=== PATIENT | male | born 1940 | race Caucasian/White ===

== ENCOUNTER 2021-03-18 07:43 | Inpatient (IN) ==
[2021-03-18] MEDS ORDERED: GLUCAGON 1 MG VIAL IM PRN (08:04)
[2021-03-18] MEDS ORDERED: CLORAZEPATE 3.75 MG TABLET PO PRN (08:08)
[2021-03-18] MEDS ORDERED: NITROGLYCERIN SL 0.4 MG TABLET SL PRN (08:08)
[2021-03-18] MEDS ORDERED: MORPHINE 2 MG/1 ML SYRINGE IV PRN (08:08)
[2021-03-18] MEDS ORDERED: INFLUENZA VIRUS VACCINE 0.5 ML SYRINGE IM ONE (15:24)
[2021-03-18 15:29] LABS: Basophils % 0.4 % (0.0-0.8); Eosinophils # 0.1 10*3/uL (0.0-0.87); Eosinophils % 0.9 % (0.00-10.9); Hematocrit 37.4 VOL% (42.0-52.0); Hemoglobin 12.7 GM/DL (14.0-18.0); Immature Granulocytes % 0.4 %; Immature Granulocytes Absolute 0.03 #; Lymphocytes # 1.9 10*3/uL (1.4-4.0); Lymphocytes % 22.2 % (21.2-54.2); Mean Corpuscular Volume 94.4 FL (87-102); Mean Platelet Volume 8.7 FL (9.6-12.0); Monocytes % 7.5 % (1.7-12.7); Neutrophils % 68.6 % (38.7-73.9); Platelet Count 362 T/CUMM (130-400); Red Blood Count 3.96 MC/CUMM (3.8-5.5); Red Cell Distribution Width 13.1 % (9.3-17.3); White Blood Count 8.5 T/CUMM (4-12)
[2021-03-18] MEDS ORDERED: DEXTROSE 50% 25 GM/50 ML SYRINGE IV PRN (15:29)
[2021-03-18 15:49] LABS: Alanine Aminotransferase 26 U/L (16-61); Albumin 3.4 G/DL (3.4-5.0); Alkaline Phosphatase 65 U/L (45-117); Aspartate Amino Transferase 15 U/L (0-37); Bilirubin,Total < 0.39 MG/DL (0.20-1.00); Blood Urea Nitrogen 16 MG/DL (7-18); Calcium 9.4 MG/DL (8.5-10.1); Carbon Dioxide 27 MMOL/L (21-32); Estimated Glom Filtration Rate 68 ML/MIN; Glucose 99 MG/DL (74-106); Osmolality,Calculated 283.1 MOS/KG (273-304); Potassium 3.8 MMOL/L (3.5-5.1); Sodium 142 MMOL/L (136-145)
[2021-03-18 16:24] LABS: ABG Base Excess 1.2 MMOL/L (-2.5-2.5); ABG HCO3 25.5 MMOL/L (20-26); ABG Oxygen Saturation 98.6 % (95-100); ABG PCO2 34.7 MM HG (35-48); ABG PH 7.458 (7.35-7.45); ABG TCO2 21.6 MMOL/L (23-27); Pt O2 Delivery Device Room Air
[2021-03-18] MEDS: CHLORHEXIDINE 4% SOLN 118 ML BOTTLE TOP SCH ×2 (16:59→22:45)
[2021-03-18] MEDS: CHLORHEXIDINE 0.12% ORAL RINSE 60 ML BOTTLE SWISH/SPIT SCH (22:46)
[2021-03-19] MEDS ORDERED: PAPAVERINE 60 MG/2 ML VIAL ONE (04:19)
[2021-03-19] MEDS ORDERED: VANCOMYCIN 1,000 MG VIAL ONE (04:20)
[2021-03-19] MEDS ORDERED: VANCOMYCIN 500 MG VIAL ONE (04:20)
[2021-03-19] MEDS: CHLORHEXIDINE 4% SOLN 118 ML BOTTLE TOP SCH (04:30)
[2021-03-19] MEDS ORDERED: CEFUROXIME INJ 1,500 MG in SODIUM CHLORIDE 0.9% 100 ML IV ONE (05:00)
[2021-03-19] MEDS ORDERED: ePHEDrine 50 MG/ML VIAL ONE ×2 (05:02→07:03)
[2021-03-19] MEDS ORDERED: VECURONIUM 10 MG VIAL IV ONE (05:02)
[2021-03-19] MEDS ORDERED: ETOMIDATE 40 MG/20 ML VIAL IV ONE (05:02)
[2021-03-19] MEDS ORDERED: CALCIUM CHLORIDE 1,000 MG/10 ML VIAL IV ONE ×2 (05:02→10:24)
[2021-03-19] MEDS ORDERED: NITROGLYCERIN DRIP 50 MG/250 ML BOTTLE IV ONE (05:02)
[2021-03-19] MEDS ORDERED: AMINOCAPROIC ACID 5,000 MG/20 ML VIAL ONE (05:02)
[2021-03-19] MEDS ORDERED: SODIUM CHLORIDE 0.9% 1,000 ML IV ONE (05:02)
[2021-03-19] MEDS ORDERED: SODIUM CHLORIDE 0.9% 250 ML IV ONE (05:02)
[2021-03-19] MEDS ORDERED: SEVOFLURANE 1 UNIT/15 MINUTE INH ONE ×3 (05:02→11:25)
[2021-03-19] MEDS ORDERED: LACTATED RINGERS 1,000 ML IV ONE (05:02)
[2021-03-19] MEDS ORDERED: MIDAZOLAM 10 MG/2 ML VIAL ONE ×4 (05:03)
[2021-03-19] MEDS ORDERED: SUFentanil 250 MCG/5 ML AMP ONE ×2 (05:03→05:04)
[2021-03-19] MEDS ORDERED: PHENYLEPHRINE 10 MG/1 ML VIAL IV ONE (05:03)
[2021-03-19] MEDS ORDERED: DIAZEPAM 5 MG TABLET PO ONE (05:30)
[2021-03-19] MEDS ORDERED: FAMOTIDINE 20 MG TABLET PO ONE (05:30)
[2021-03-19] MEDS: CHLORHEXIDINE 0.12% ORAL RINSE 60 ML BOTTLE SWISH/SPIT SCH ×3 (05:43→20:30)
[2021-03-19] MEDS ORDERED: LIDOCAINE 2% 5 ML VIAL ONE ×2 (05:49→10:57)
[2021-03-19] MEDS ORDERED: MINERAL OIL/PETROLATUM OPH OINT 3.5 GM TUBE ONE (07:03)
[2021-03-19] MEDS ORDERED: POTASSIUM CHLORIDE RIDER 20 MEQ/100 ML PREMIX IV ONE (07:09)
[2021-03-19] MEDS ORDERED: CALCIUM CHLORIDE 1,000 MG/10 ML SYRINGE IV ONE (07:09)
[2021-03-19] MEDS ORDERED: PHENYLEPHRINE DRIP 40 MG/250 ML PREMIX IV ONE (07:09)
[2021-03-19] MEDS ORDERED: NITROPRUSSIDE 50 MG/2 ML VIAL ONE (07:09)
[2021-03-19] MEDS ORDERED: SODIUM BICARBONATE 50 MEQ/50 ML VIAL IV ONE ×2 (07:09→10:58)
[2021-03-19 07:51] LABS: Bacteria,Urine Occasional /HPF (Few); Bilirubin,Urine Negative (Negative); Blood, Urine Small mg/dL (Negative); Glucose,Urine (UA) Negative (Negative); Ketones,Urine Negative (Negative); Nitrite,Urine Negative (Negative); Protein,Urine Negative; RBC,Urine 8 /HPF (0-4); Urine Appearance CLEAR (Clear); Urine Color Straw (Yellow); Urine Specific Gravity 1.006 (1.001-1.035); Urine Urobilinogen < 2.0 EU/DL (0.2-1.0)
[2021-03-19] MEDS ORDERED: HEPARIN/NACL 0.9% 2 UNITS/ML 1,000 UNIT/500 ML BAG IV ONE (08:45)
[2021-03-19 09:05] LABS: PCO2 Patient Temp Arterial 39.4 MMHG; PH Patient Temp Arterial 7.414; Patient Temperature 37 CELCIUS
[2021-03-19 09:09] LABS: Hematocrit Heart Surgery 23.2 PERCENT (42-52); Hemoglobin Heart Surgery 7.4 G/DL (14.0-18.0); PCO2 Patient Temp Venous 34.1 MM HG; PH Patient Temp Venous 7.458; PO2 Patient Temp Venous 35.7 MM HG; Potassium Heart/CVR 4.2 MMOL/L (3.5-5.1); VBG Base Excess 0.7 MEQ/L (0-4); VBG HCO3 24.8 MEQ/L (24-28); VBG Oxygen Saturation 80.6 %; VBG PCO2 39.4 MMHG (41-51); VBG PH 7.414; VBG Total CO2 23.7 MMOL/L
[2021-03-19 09:10] LABS: ABG Base Excess 0.7 MMOL/L (-2.5-2.5); ABG HCO3 24.8 MMOL/L (20-26); ABG Oxygen Saturation 80.6 % (95-100); ABG PCO2 39.4 MM HG (35-48); ABG PH 7.414 (7.35-7.45); ABG TCO2 23.7 MMOL/L (23-27); Glucose Heart Surgery 329 MG/DL (74-106); Hematocrit Heart Surgery 23.2 PERCENT (42-52); Hemoglobin Heart Surgery 7.4 G/DL (14.0-18.0); Ionized Calcium Arterial 1.01 MMOL/L (1.21-1.46); Potassium Heart/CVR 4.2 MMOL/L (3.5-5.1); Sodium Heart/CVR 131 MMOL/L (135-145)
[2021-03-19 09:37] LABS: Hematocrit Heart Surgery 25.5 PERCENT (42-52); Hemoglobin Heart Surgery 8.2 G/DL (14.0-18.0); PCO2 Patient Temp Venous 36.7 MM HG; PH Patient Temp Venous 7.434; PO2 Patient Temp Venous 45.1 MM HG; Potassium Heart/CVR 4.2 MMOL/L (3.5-5.1); VBG Base Excess 0.5 MEQ/L (0-4); VBG HCO3 24.7 MEQ/L (24-28); VBG Oxygen Saturation 82.4 %; VBG PCO2 36.7 MMHG (41-51); VBG PH 7.434; VBG PO2 45.1 MMHG (17-40); VBG Total CO2 22.9 MMOL/L
[2021-03-19 10:08] LABS: Hematocrit Heart Surgery 27.1 PERCENT (42-52); Hemoglobin Heart Surgery 8.7 G/DL (14.0-18.0); PCO2 Patient Temp Venous 35.6 MM HG; PH Patient Temp Venous 7.443; PO2 Patient Temp Venous 36.5 MM HG; Potassium Heart/CVR 4.3 MMOL/L (3.5-5.1); VBG Base Excess 0.5 MEQ/L (0-4); VBG HCO3 24.5 MEQ/L (24-28); VBG Oxygen Saturation 71.7 %; VBG PCO2 35.6 MMHG (41-51); VBG PH 7.443; VBG PO2 36.5 MMHG (17-40); VBG Total CO2 22.6 MMOL/L
[2021-03-19] MEDS ORDERED: THROMBIN TOPICAL (RECOMBINANT) 5,000 UNIT VIAL TOP ONE (10:23)
[2021-03-19 10:51] LABS: ABG Base Excess -2.4 MMOL/L (-2.5-2.5); ABG HCO3 22.4 MMOL/L (20-26); ABG Oxygen Saturation 99.4 % (95-100); ABG PCO2 41.2 MM HG (35-48); ABG PH 7.354 (7.35-7.45); ABG TCO2 21.1 MMOL/L (23-27); Glucose Heart Surgery 208 MG/DL (74-106); Hematocrit Heart Surgery 29.4 PERCENT (42-52); Hemoglobin Heart Surgery 9.5 G/DL (14.0-18.0); Ionized Calcium Arterial 1.29 MMOL/L (1.21-1.46); PCO2 Patient Temp Arterial 41.2 MMHG; PH Patient Temp Arterial 7.354; Patient Temperature 37 CELCIUS; Potassium Heart/CVR 3.6 MMOL/L (3.5-5.1); Sodium Heart/CVR 137 MMOL/L (135-145)
[2021-03-19] MEDS ORDERED: ALBUMIN 25% 25 GM/100 ML VIAL IV ONE (10:56)
[2021-03-19] MEDS ORDERED: HEPARIN 10,000 UNIT/10 ML VIAL ONE (10:57)
[2021-03-19] MEDS ORDERED: MAGNESIUM SULFATE 5 GM/10 ML VIAL IV ONE (10:57)
[2021-03-19] MEDS ORDERED: MANNITOL 100 GM/500 ML BAG IV ONE (10:57)
[2021-03-19] MEDS ORDERED: PROTAMINE SULFATE 250 MG/25 ML VIAL IV ONE (10:57)
[2021-03-19] MEDS ORDERED: DEXTROSE 5% KCL 20 MEQ 20 MEQ/1,000 ML BAG IV ONE (10:57)
[2021-03-19] MEDS ORDERED: methylPREDNISolone SOD SUC 1,000 MG/8 ML VIAL ONE (10:57)
[2021-03-19] MEDS ORDERED: PROTAMINE SULFATE 50 MG/5 ML VIAL IV ONE ×2 (10:58→11:21)
[2021-03-19] MEDS ORDERED: FUROSEMIDE 20 MG/2 ML VIAL ONE (10:58)
[2021-03-19] MEDS ORDERED: SODIUM CHLORIDE 0.45% 1,000 ML IV SCH ×2 (11:03)
[2021-03-19] MEDS ORDERED: ACETAMINOPHEN 650 MG SUPP RECTAL PRN (11:03)
[2021-03-19] MEDS ORDERED: INSULIN REGULAR DRIP 100 ML IV SCH (11:03)
[2021-03-19] MEDS ORDERED: NITROPRUSSIDE 100 MG in DEXTROSE 5% 250 ML IV PRN (11:03)
[2021-03-19] MEDS ORDERED: INSULIN REGULAR 100 UNIT/ML IV PRN (11:03)
[2021-03-19] MEDS ORDERED: CALCIUM CHLORIDE 1,000 MG/10 ML SYRINGE IV PRN (11:03)
[2021-03-19] MEDS ORDERED: MIDAZOLAM 10 MG/2 ML VIAL IV PRN (11:03)
[2021-03-19] MEDS ORDERED: VECURONIUM 10 MG VIAL IV PRN ×2 (11:03)
[2021-03-19] MEDS ORDERED: CHLORHEXIDINE 4% SOLN 118 ML BOTTLE TOP PRN (11:03)
[2021-03-19] MEDS ORDERED: ONDANSETRON 4 MG/2 ML VIAL IV PRN (11:03)
[2021-03-19] MEDS ORDERED: INSULIN REGULAR 100 UNIT/ML IV ONE (11:03)
[2021-03-19] MEDS ORDERED: MAGNESIUM SULF RIDER 4 GM/100 ML PREMIX IV PRN (11:03)
[2021-03-19] MEDS ORDERED: PHENYLEPHRINE DRIP 40 MG/250 ML PREMIX IV PRN (11:03)
[2021-03-19] MEDS ORDERED: MORPHINE 10 MG/1 ML VIAL IV PRN (11:03)
[2021-03-19] MEDS ORDERED: MIDAZOLAM 2 MG/2 ML VIAL IV PRN (11:03)
[2021-03-19] MEDS ORDERED: MAGNESIUM SULF RIDER 2 GM/50 ML PREMIX IV PRN (11:03)
[2021-03-19] MEDS ORDERED: DEXTROSE 50% 25 GM/50 ML SYRINGE IV PRN ×2 (11:54)
[2021-03-19] MEDS: ALBUMIN 5% 12.5 GM/250 ML VIAL IV PRN ×2 (12:17→13:41)
[2021-03-19 12:26] LABS: ABG Base Excess -2.8 MMOL/L (-2.5-2.5); ABG HCO3 22.1 MMOL/L (20-26); ABG Oxygen Saturation 98.6 % (95-100); ABG PCO2 32.7 MM HG (35-48); ABG PH 7.417 (7.35-7.45); ABG TCO2 19.2 MMOL/L (23-27); Glucose Heart Surgery 195 MG/DL (74-106); Hematocrit Heart Surgery 30.4 PERCENT (42-52); Hemoglobin Heart Surgery 9.8 G/DL (14.0-18.0); Potassium Heart/CVR 3.3 MMOL/L (3.5-5.1)
[2021-03-19 12:28] LABS: Basophils % 0.1 % (0.0-0.8); Eosinophils % 0.1 % (0.00-10.9); Hematocrit 27.9 VOL% (42.0-52.0); Hemoglobin 9.6 GM/DL (14.0-18.0); Immature Granulocytes % 0.7 %; Immature Granulocytes Absolute 0.13 #; Lymphocytes # 1.3 10*3/uL (1.4-4.0); Lymphocytes % 6.6 % (21.2-54.2); Mean Corpuscular HGB Conc 34.4 GM/DL (32-36); Mean Corpuscular Volume 94.6 FL (87-102); Mean Platelet Volume 8.9 FL (9.6-12.0); Monocytes % 4.5 % (1.7-12.7); Platelet Count 285 T/CUMM (130-400); Red Blood Count 2.95 MC/CUMM (3.8-5.5); Red Cell Distribution Width 13.2 % (9.3-17.3); White Blood Count 19.7 T/CUMM (4-12)
[2021-03-19] MEDS: POTASSIUM CHLORIDE RIDER 20 MEQ/100 ML PREMIX IV PRN ×3 (12:35→14:03)
[2021-03-19 12:45] LABS: INR 1.2; PT Patient Result 12.9 SECS (10.5-12.0); Partial Thromboplastin Time 25.7 SECS (23.8-32.1)
[2021-03-19 12:51] LABS: CKMB % 8.4 %
[2021-03-19 12:59] LABS: High Sensitive Troponin I* 4519.8 ng/L (0-78)
[2021-03-19 13:01] LABS: Albumin 2.9 G/DL (3.4-5.0); Bilirubin,Total 0.6 MG/DL (0.20-1.00); Osmolality,Calculated 291.8 MOS/KG (273-304); Potassium 3.3 MMOL/L (3.5-5.1); Total Protein 5.4 G/DL (6.4-8.2)
[2021-03-19] MEDS: SODIUM CHLORIDE 0.9% 1,000 ML IV SCH (13:37)
[2021-03-19 14:00] LABS: ABG HCO3 21.9 MMOL/L (20-26); ABG Oxygen Saturation 99.1 % (95-100); ABG PCO2 32.4 MM HG (35-48); ABG PH 7.417 (7.35-7.45); ABG TCO2 19.2 MMOL/L (23-27); Glucose Heart Surgery 176 MG/DL (74-106); Hematocrit Heart Surgery 27.9 PERCENT (42-52); Potassium Heart/CVR 3.8 MMOL/L (3.5-5.1)
[2021-03-19] MEDS: POTASSIUM CHLORIDE RIDER 10 MEQ/100 ML PREMIX IV PRN (14:35)
[2021-03-19 15:39] LABS: ABG Base Excess -3.3 MMOL/L (-2.5-2.5); ABG HCO3 21.7 MMOL/L (20-26); ABG Oxygen Saturation 99.1 % (95-100); ABG PCO2 32.5 MM HG (35-48); ABG TCO2 18.8 MMOL/L (23-27); Glucose Heart Surgery 184 MG/DL (74-106); Hemoglobin Heart Surgery 9.7 G/DL (14.0-18.0); Potassium Heart/CVR 4.1 MMOL/L (3.5-5.1)
[2021-03-19 17:01] LABS: ABG Base Excess -3.8 MMOL/L (-2.5-2.5); ABG HCO3 21.2 MMOL/L (20-26); ABG Oxygen Saturation 98.8 % (95-100); ABG PCO2 33.2 MM HG (35-48); ABG PH 7.395 (7.35-7.45); ABG TCO2 18.6 MMOL/L (23-27); Glucose Heart Surgery 183 MG/DL (74-106); Hematocrit Heart Surgery 29.5 PERCENT (42-52); Hemoglobin Heart Surgery 9.5 G/DL (14.0-18.0); Potassium Heart/CVR 4.1 MMOL/L (3.5-5.1)
[2021-03-19] MEDS: LACTATED RINGERS 250 ML IV PRN ×2 (18:50→20:30)
[2021-03-19] MEDS: CEFUROXIME INJ 1,500 MG in SODIUM CHLORIDE 0.9% 100 ML IV SCH (20:00)
[2021-03-19 20:26] LABS: Basophils % 0.1 % (0.0-0.8); Hematocrit 22.7 VOL% (42.0-52.0); Hemoglobin 7.8 GM/DL (14.0-18.0); Immature Granulocytes % 0.8 %; Immature Granulocytes Absolute 0.11 #; Lymphocytes # 0.5 10*3/uL (1.4-4.0); Lymphocytes % 3.1 % (21.2-54.2); Mean Corpuscular HGB Conc 34.4 GM/DL (32-36); Mean Corpuscular Volume 94.2 FL (87-102); Mean Platelet Volume 9.3 FL (9.6-12.0); Monocytes % 2.9 % (1.7-12.7); Neutrophils % 93.1 % (38.7-73.9); Platelet Count 288 T/CUMM (130-400); Red Blood Count 2.41 MC/CUMM (3.8-5.5); Red Cell Distribution Width 14.3 % (9.3-17.3); White Blood Count 14.6 T/CUMM (4-12)
[2021-03-19 20:27] LABS: ABG Base Excess -3.9 MMOL/L (-2.5-2.5); ABG HCO3 21.2 MMOL/L (20-26); ABG Oxygen Saturation 98.9 % (95-100); ABG PCO2 32.2 MM HG (35-48); ABG PH 7.406 (7.35-7.45); ABG TCO2 18.8 MMOL/L (23-27); Glucose Heart Surgery 190 MG/DL (74-106); Hematocrit Heart Surgery 24.9 PERCENT (42-52)
[2021-03-19] MEDS: INSULIN REGULAR 100 UNIT/ML SUBCUT SCH (20:30)
[2021-03-19 20:49] LABS: CKMB % 8.4 %
[2021-03-19 20:53] LABS: High Sensitive Troponin I* 7737.4 ng/L (0-78)
[2021-03-19 21:17] LABS: Band Neutrophils 8 % (0-10); Lymphocytes 3 % (20-55); Segmented Neutrophils 87 % (50-85); Total Cells Counted 100
[2021-03-19 21:17] LABS: ABG Base Excess -4.1 MMOL/L (-2.5-2.5); ABG Oxygen Saturation 98.3 % (95-100); ABG PCO2 39.1 MM HG (35-48); ABG PH 7.343 (7.35-7.45); ABG TCO2 19.8 MMOL/L (23-27); Glucose Heart Surgery 201 MG/DL (74-106); Hematocrit Heart Surgery 25.6 PERCENT (42-52); Hemoglobin Heart Surgery 8.2 G/DL (14.0-18.0)
[2021-03-19 21:18] LABS: Anisocytosis Slight
[2021-03-19 21:20] LABS: Platelet Estimate Adequate
[2021-03-19 23:16] LABS: ABG HCO3 21.1 MMOL/L (20-26); ABG Oxygen Saturation 98.2 % (95-100); ABG PCO2 39.6 MM HG (35-48); ABG PH 7.341 (7.35-7.45); ABG TCO2 19.6 MMOL/L (23-27); Glucose Heart Surgery 195 MG/DL (74-106); Hematocrit Heart Surgery 30.7 PERCENT (42-52); Hemoglobin Heart Surgery 9.9 G/DL (14.0-18.0); Potassium Heart/CVR 4.1 MMOL/L (3.5-5.1)
[2021-03-20] MEDS: INSULIN REGULAR 100 UNIT/ML SUBCUT SCH ×6 (00:13→20:11)
[2021-03-20 01:14] LABS: ABG Base Excess -3.2 MMOL/L (-2.5-2.5); ABG HCO3 21.7 MMOL/L (20-26); ABG Oxygen Saturation 98.3 % (95-100); ABG PCO2 39.3 MM HG (35-48); ABG PH 7.355 (7.35-7.45); ABG TCO2 20.2 MMOL/L (23-27); Glucose Heart Surgery 191 MG/DL (74-106); Hemoglobin Heart Surgery 9.7 G/DL (14.0-18.0)
[2021-03-20] MEDS: ALBUMIN 5% 12.5 GM/250 ML VIAL IV PRN (01:21)
[2021-03-20] MEDS ORDERED: FUROSEMIDE 40 MG/4 ML VIAL IV ONE (03:18)
[2021-03-20 03:54] LABS: Hematocrit 26.8 VOL% (42.0-52.0); Hemoglobin 9.3 GM/DL (14.0-18.0); Immature Granulocytes % 0.3 %; Immature Granulocytes Absolute 0.04 #; Lymphocytes # 0.6 10*3/uL (1.4-4.0); Lymphocytes % 4.5 % (21.2-54.2); Mean Corpuscular HGB Conc 34.7 GM/DL (32-36); Mean Corpuscular Volume 90.8 FL (87-102); Mean Platelet Volume 9.4 FL (9.6-12.0); Monocytes % 3.7 % (1.7-12.7); Neutrophils % 91.5 % (38.7-73.9); Platelet Count 237 T/CUMM (130-400); Red Blood Count 2.95 MC/CUMM (3.8-5.5); Red Cell Distribution Width 15.5 % (9.3-17.3); White Blood Count 12.7 T/CUMM (4-12)
[2021-03-20 04:12] LABS: CKMB % 8.3 %
[2021-03-20 04:17] LABS: Albumin 3.5 G/DL (3.4-5.0); Bilirubin,Direct 0.15 MG/DL (0.0-0.20); Bilirubin,Total 0.6 MG/DL (0.20-1.00); Osmolality,Calculated 293.8 MOS/KG (273-304); Total Protein 6.2 G/DL (6.4-8.2)
[2021-03-20 04:19] LABS: Band Neutrophils 2 % (0-10); Hypochromasia 1+; Lymphocytes 7 % (20-55); Microcytosis 1+; Platelet Estimate Adequate; Segmented Neutrophils 86 % (50-85); Total Cells Counted 100
[2021-03-20 04:34] LABS: ABG HCO3 21.4 MMOL/L (20-26); ABG Oxygen Saturation 97.1 % (95-100); ABG PCO2 35.6 MM HG (35-48); ABG PH 7.396 (7.35-7.45); ABG PO2 98.4 MM HG (80-95); ABG TCO2 22.5 MMOL/L (23-27); Glucose Heart Surgery 171 MG/DL (74-106); Hemoglobin Heart Surgery 9.7 G/DL (14.0-18.0); Potassium Heart/CVR 3.7 MMOL/L (3.5-5.1)
[2021-03-20] MEDS: POTASSIUM CHLORIDE RIDER 20 MEQ/100 ML PREMIX IV PRN (05:05)
[2021-03-20] MEDS: POTASSIUM CHLORIDE RIDER 10 MEQ/100 ML PREMIX IV PRN (05:41)
[2021-03-20 06:18] LABS: ABG Base Excess -1.7 MMOL/L (-2.5-2.5); ABG Oxygen Saturation 98.1 % (95-100); ABG PH 7.381 (7.35-7.45); Glucose Heart Surgery 179 MG/DL (74-106); Hematocrit Heart Surgery 31.6 PERCENT (42-52); Hemoglobin Heart Surgery 10.2 G/DL (14.0-18.0); Potassium Heart/CVR 4.2 MMOL/L (3.5-5.1)
[2021-03-20] MEDS: CEFUROXIME INJ 1,500 MG in SODIUM CHLORIDE 0.9% 100 ML IV SCH ×2 (06:27→18:30)
[2021-03-20] MEDS: SODIUM CHLOR 0.45% KCL 20 MEQ 20 MEQ/1,000 ML BAG IV SCH (07:31)
[2021-03-20] MEDS: KETOROLAC 15 MG/1 ML VIAL IV SCH ×3 (07:31→20:08)
[2021-03-20] MEDS: CHLORHEXIDINE 0.12% ORAL RINSE 60 ML BOTTLE SWISH/SPIT SCH ×2 (08:06→20:11)
[2021-03-20] MEDS: CHOLECALCIFEROL 1,000 UNIT TABLET PO SCH (08:24)
[2021-03-20] MEDS: ZINC GLUCONATE 50 MG TABLET PO SCH (08:24)
[2021-03-20] MEDS: ASPIRIN EC 325 MG TABLET PO SCH (08:24)
[2021-03-20] MEDS: ASCORBIC ACID 500 MG TABLET PO SCH (08:24)
[2021-03-20] MEDS: CYANOCOBALAMIN 500 MCG TABLET PO SCH (08:24)
[2021-03-20] MEDS: oxyCODONE/ACETAMINOPHEN 5-325 MG TABLET PO PRN (09:45)
[2021-03-20] MEDS ORDERED: AMIODARONE INJ 150 MG in DEXTROSE 5% 100 ML IV ONE (10:45)
[2021-03-20] MEDS ORDERED: AMIODARONE INJ 450 MG in DEXTROSE 5% 241 ML IV SCH (11:00)
[2021-03-20 14:22] LABS: CKMB % 5.8 %
[2021-03-20 14:25] LABS: High Sensitive Troponin I* 6821.6 ng/L (0-78)
[2021-03-20] MEDS: AMIODARONE INJ 450 MG in DEXTROSE 5% 241 ML IV SCH (22:00)
[2021-03-21] MEDS: KETOROLAC 15 MG/1 ML VIAL IV SCH ×3 (03:28→15:29)
[2021-03-21 08:29] LABS: Basophils % 0.1 % (0.0-0.8); Hematocrit 28.8 VOL% (42.0-52.0); Hemoglobin 9.6 GM/DL (14.0-18.0); Immature Granulocytes % 0.9 %; Immature Granulocytes Absolute 0.15 #; Lymphocytes # 0.6 10*3/uL (1.4-4.0); Lymphocytes % 3.5 % (21.2-54.2); Mean Corpuscular HGB Conc 33.3 GM/DL (32-36); Mean Corpuscular Volume 93.2 FL (87-102); Mean Platelet Volume 9.6 FL (9.6-12.0); Monocytes % 5.1 % (1.7-12.7); Neutrophils % 90.4 % (38.7-73.9); Platelet Count 198 T/CUMM (130-400); Red Blood Count 3.09 MC/CUMM (3.8-5.5); Red Cell Distribution Width 15.3 % (9.3-17.3); White Blood Count 17.5 T/CUMM (4-12)
[2021-03-21] MEDS: ZINC GLUCONATE 50 MG TABLET PO SCH (08:41)
[2021-03-21] MEDS: CHOLECALCIFEROL 1,000 UNIT TABLET PO SCH (08:41)
[2021-03-21] MEDS: ASCORBIC ACID 500 MG TABLET PO SCH (08:41)
[2021-03-21] MEDS: ASPIRIN EC 325 MG TABLET PO SCH (08:41)
[2021-03-21] MEDS: CYANOCOBALAMIN 500 MCG TABLET PO SCH (08:42)
[2021-03-21] MEDS: AMIODARONE 200 MG TABLET PO SCH (08:42)
[2021-03-21 08:53] LABS: Alanine Aminotransferase 24 U/L (16-61); Albumin 2.9 G/DL (3.4-5.0); Alkaline Phosphatase 42 U/L (45-117); Aspartate Amino Transferase 46 U/L (0-37); Bilirubin,Direct < 0.100 MG/DL (0.0-0.20); Bilirubin,Total < 0.39 MG/DL (0.20-1.00); Blood Urea Nitrogen 34 MG/DL (7-18); Calcium 8.7 MG/DL (8.5-10.1); Carbon Dioxide 25 MMOL/L (21-32); Estimated Glom Filtration Rate 70 ML/MIN; Glucose 142 MG/DL (74-106); Osmolality,Calculated 290.3 MOS/KG (273-304); Potassium 4.5 MMOL/L (3.5-5.1); Sodium 141 MMOL/L (136-145); Total Protein 5.8 G/DL (6.4-8.2)
[2021-03-21 08:54] LABS: Anisocytosis 2+; Band Neutrophils 15 % (0-10); Lymphocytes 3 % (20-55); Platelet Estimate Normal; Segmented Neutrophils 80 % (50-85); Total Cells Counted 100
[2021-03-21 08:55] LABS: Macrocytosis Slight
[2021-03-21] MEDS ORDERED: AMIODARONE 200 MG TABLET PO SCH (09:00)
[2021-03-21] MEDS: SODIUM CHLOR 0.45% KCL 20 MEQ 20 MEQ/1,000 ML BAG IV SCH (09:46)
[2021-03-21] MEDS: INSULIN REGULAR 100 UNIT/ML SUBCUT SCH ×4 (09:46→22:25)
[2021-03-21] MEDS: AMIODARONE INJ 450 MG in DEXTROSE 5% 241 ML IV SCH (09:47)
[2021-03-21] MEDS: CHLORHEXIDINE 0.12% ORAL RINSE 60 ML BOTTLE SWISH/SPIT SCH ×3 (09:47→21:17)
[2021-03-21] MEDS: carvediloL 3.125 MG TABLET PO SCH ×2 (10:02→21:17)
[2021-03-21] MEDS ORDERED: KETOROLAC 15 MG/1 ML VIAL IV SCH (15:30)
[2021-03-21] MEDS ORDERED: ACETAMINOPHEN 325 MG TABLET PO PRN (16:52)
[2021-03-21] MEDS ORDERED: ZALEPLON 5 MG CAPSULE PO PRN (16:52)
[2021-03-21] MEDS ORDERED: MAGNESIUM SULF RIDER 4 GM/100 ML PREMIX IV PRN (16:52)
[2021-03-21] MEDS ORDERED: GLUCAGON 1 MG VIAL IM PRN (16:52)
[2021-03-21] MEDS ORDERED: MAGNESIUM SULF RIDER 2 GM/50 ML PREMIX IV PRN (16:52)
[2021-03-21] MEDS ORDERED: MAGNESIUM HYDROXIDE SUSP 30 ML UDCUP PO PRN (16:52)
[2021-03-21] MEDS ORDERED: POTASSIUM CHLORIDE 20 MEQ TABLET PO PRN (16:52)
[2021-03-21] MEDS ORDERED: ALUMINUM/MAGNES/SIMETH MAX STR 30 ML UDCUP PO PRN (16:52)
[2021-03-21] MEDS ORDERED: DEXTROSE 50% 25 GM/50 ML SYRINGE IV PRN (16:56)
[2021-03-21] MEDS: FERROUS SULFATE 325 MG TABLET PO SCH (17:33)
[2021-03-21] MEDS: DOCUSATE SODIUM 100 MG CAPSULE PO SCH (17:33)
[2021-03-21] MEDS: PANTOPRAZOLE 40 MG TABLET PO SCH (17:33)
[2021-03-22] MEDS ORDERED: FUROSEMIDE 40 MG/4 ML VIAL IV ONE (06:00)
[2021-03-22 06:14] LABS: Basophils % 0.1 % (0.0-0.8); Hematocrit 30.2 VOL% (42.0-52.0); Immature Granulocytes % 0.9 %; Immature Granulocytes Absolute 0.14 #; Lymphocytes # 0.7 10*3/uL (1.4-4.0); Lymphocytes % 4.9 % (21.2-54.2); Mean Corpuscular HGB Conc 33.1 GM/DL (32-36); Mean Corpuscular Volume 94.4 FL (87-102); Mean Platelet Volume 10.1 FL (9.6-12.0); Monocytes % 6.5 % (1.7-12.7); Neutrophils % 87.6 % (38.7-73.9); Platelet Count 219 T/CUMM (130-400); Red Cell Distribution Width 14.7 % (9.3-17.3); White Blood Count 15.2 T/CUMM (4-12)
[2021-03-22 06:30] LABS: Alanine Aminotransferase 19 U/L (16-61); Albumin 2.8 G/DL (3.4-5.0); Alkaline Phosphatase 44 U/L (45-117); Aspartate Amino Transferase 27 U/L (0-37); Bilirubin,Direct < 0.100 MG/DL (0.0-0.20); Blood Urea Nitrogen 37 MG/DL (7-18); Calcium 8.8 MG/DL (8.5-10.1); Carbon Dioxide 26 MMOL/L (21-32); Estimated Glom Filtration Rate 77 ML/MIN; Glucose 135 MG/DL (74-106); Osmolality,Calculated 287.5 MOS/KG (273-304); Potassium 4.6 MMOL/L (3.5-5.1); Sodium 139 MMOL/L (136-145); Total Protein 5.7 G/DL (6.4-8.2)
[2021-03-22 06:39] LABS: Alanine Aminotransferase 23 U/L (16-61); Albumin 2.9 G/DL (3.4-5.0); Aspartate Amino Transferase 27 U/L (0-37); Bilirubin,Direct < 0.100 MG/DL (0.0-0.20); CKMB % 2.5 %; Total Protein 5.4 G/DL (6.4-8.2)
[2021-03-22 06:42] LABS: Bilirubin,Indirect 0.3 MG/DL (0.0-1.0)
[2021-03-22 06:43] LABS: Alkaline Phosphatase 42 U/L (45-117)
[2021-03-22 06:48] LABS: Hypochromasia Slight; Lymphocytes 7 % (20-55); Microcytosis 1+; Platelet Estimate Adequate; Segmented Neutrophils 90 % (50-85); Total Cells Counted 100
[2021-03-22] MEDS: INSULIN REGULAR 100 UNIT/ML SUBCUT SCH ×4 (08:14→21:21)
[2021-03-22] MEDS: FERROUS SULFATE 325 MG TABLET PO SCH (09:10)
[2021-03-22] MEDS: CYANOCOBALAMIN 500 MCG TABLET PO SCH (09:10)
[2021-03-22] MEDS: ZINC GLUCONATE 50 MG TABLET PO SCH (09:10)
[2021-03-22] MEDS: ASPIRIN EC 325 MG TABLET PO SCH (09:10)
[2021-03-22] MEDS: CHOLECALCIFEROL 1,000 UNIT TABLET PO SCH (09:10)
[2021-03-22] MEDS: carvediloL 3.125 MG TABLET PO SCH ×2 (09:10→21:18)
[2021-03-22] MEDS: DOCUSATE SODIUM 100 MG CAPSULE PO SCH (09:10)
[2021-03-22] MEDS: ASCORBIC ACID 500 MG TABLET PO SCH (09:10)
[2021-03-22] MEDS: AMIODARONE 200 MG TABLET PO SCH (09:11)
[2021-03-22] MEDS: PANTOPRAZOLE 40 MG TABLET PO SCH (09:11)
[2021-03-22] MEDS: CHLORHEXIDINE 0.12% ORAL RINSE 60 ML BOTTLE SWISH/SPIT SCH ×2 (09:12→21:18)
[2021-03-22] MEDS: oxyCODONE/ACETAMINOPHEN 5-325 MG TABLET PO PRN ×3 (12:00→21:18)
[2021-03-23] MEDS: oxyCODONE/ACETAMINOPHEN 5-325 MG TABLET PO PRN ×5 (00:58→20:43)
[2021-03-23 05:48] LABS: Eosinophils % 0.2 % (0.00-10.9); Hematocrit 33.2 VOL% (42.0-52.0); Hemoglobin 10.6 GM/DL (14.0-18.0); Immature Granulocytes % 0.6 %; Immature Granulocytes Absolute 0.07 #; Lymphocytes # 1.7 10*3/uL (1.4-4.0); Lymphocytes % 14.1 % (21.2-54.2); Mean Corpuscular HGB Conc 31.9 GM/DL (32-36); Mean Platelet Volume 10.2 FL (9.6-12.0); Monocytes % 10.2 % (1.7-12.7); Neutrophils % 74.9 % (38.7-73.9); Platelet Count 252 T/CUMM (130-400); Red Blood Count 3.46 MC/CUMM (3.8-5.5); Red Cell Distribution Width 14.4 % (9.3-17.3); White Blood Count 11.9 T/CUMM (4-12)
[2021-03-23 06:09] LABS: Alanine Aminotransferase 23 U/L (16-61); Albumin 2.8 G/DL (3.4-5.0); Alkaline Phosphatase 48 U/L (45-117); Aspartate Amino Transferase 19 U/L (0-37); Bilirubin,Direct < 0.100 MG/DL (0.0-0.20); Bilirubin,Indirect 0.3 MG/DL (0.0-1.0); Blood Urea Nitrogen 40 MG/DL (7-18); Calcium 8.8 MG/DL (8.5-10.1); Carbon Dioxide 28 MMOL/L (21-32); Estimated Glom Filtration Rate 75 ML/MIN; Glucose 87 MG/DL (74-106); Potassium 4.1 MMOL/L (3.5-5.1); Sodium 143 MMOL/L (136-145); Total Protein 5.8 G/DL (6.4-8.2)
[2021-03-23] MEDS: INSULIN REGULAR 100 UNIT/ML SUBCUT SCH ×4 (08:39→20:44)
[2021-03-23] MEDS ORDERED: SODIUM PHOSPHATE ENEMA 133 ML BOTTLE RECTAL PRN (08:57)
[2021-03-23] MEDS: POLYETHYLENE GLYCOL POWDER 17 GM PACK PO SCH (09:09)
[2021-03-23] MEDS: carvediloL 3.125 MG TABLET PO SCH ×2 (09:10→20:44)
[2021-03-23] MEDS: ASCORBIC ACID 500 MG TABLET PO SCH (09:10)
[2021-03-23] MEDS: CYANOCOBALAMIN 500 MCG TABLET PO SCH (09:10)
[2021-03-23] MEDS: DOCUSATE SODIUM 100 MG CAPSULE PO SCH (09:10)
[2021-03-23] MEDS: PANTOPRAZOLE 40 MG TABLET PO SCH (09:11)
[2021-03-23] MEDS: AMIODARONE 200 MG TABLET PO SCH (09:11)
[2021-03-23] MEDS: ASPIRIN EC 325 MG TABLET PO SCH (09:11)
[2021-03-23] MEDS: CHOLECALCIFEROL 1,000 UNIT TABLET PO SCH (09:11)
[2021-03-23] MEDS: ZINC GLUCONATE 50 MG TABLET PO SCH (09:11)
[2021-03-23] MEDS: FERROUS SULFATE 325 MG TABLET PO SCH (09:11)
[2021-03-23] MEDS: CHLORHEXIDINE 0.12% ORAL RINSE 60 ML BOTTLE SWISH/SPIT SCH ×2 (09:15→20:45)
[2021-03-23] MEDS: LACTULOSE 20 GM/30 ML UDCUP PO PRN (15:15)
[2021-03-24] MEDS: oxyCODONE/ACETAMINOPHEN 5-325 MG TABLET PO PRN ×3 (01:56→10:31)
[2021-03-24 06:17] LABS: Basophils % 0.1 % (0.0-0.8); Eosinophils # 0.2 10*3/uL (0.0-0.87); Eosinophils % 1.9 % (0.00-10.9); Hematocrit 32.6 VOL% (42.0-52.0); Hemoglobin 10.6 GM/DL (14.0-18.0); Immature Granulocytes % 0.4 %; Immature Granulocytes Absolute 0.04 #; Lymphocytes # 1.8 10*3/uL (1.4-4.0); Lymphocytes % 16.8 % (21.2-54.2); Mean Corpuscular HGB Conc 32.5 GM/DL (32-36); Mean Corpuscular Volume 96.4 FL (87-102); Mean Platelet Volume 10.1 FL (9.6-12.0); Monocytes % 12.2 % (1.7-12.7); Neutrophils % 68.6 % (38.7-73.9); Platelet Count 268 T/CUMM (130-400); Red Blood Count 3.38 MC/CUMM (3.8-5.5); Red Cell Distribution Width 13.7 % (9.3-17.3); White Blood Count 10.4 T/CUMM (4-12)
[2021-03-24 06:36] LABS: Calcium 8.4 MG/DL (8.5-10.1); Osmolality,Calculated 293.1 MOS/KG (273-304); Potassium 3.9 MMOL/L (3.5-5.1)
[2021-03-24] MEDS: CYANOCOBALAMIN 500 MCG TABLET PO SCH (08:36)
[2021-03-24] MEDS: ZINC GLUCONATE 50 MG TABLET PO SCH (08:36)
[2021-03-24] MEDS: DOCUSATE SODIUM 100 MG CAPSULE PO SCH (08:36)
[2021-03-24] MEDS: carvediloL 3.125 MG TABLET PO SCH ×2 (08:36→21:30)
[2021-03-24] MEDS: ASCORBIC ACID 500 MG TABLET PO SCH (08:36)
[2021-03-24] MEDS: ASPIRIN EC 325 MG TABLET PO SCH (08:36)
[2021-03-24] MEDS: FERROUS SULFATE 325 MG TABLET PO SCH (08:36)
[2021-03-24] MEDS: PANTOPRAZOLE 40 MG TABLET PO SCH (08:37)
[2021-03-24] MEDS: CHOLECALCIFEROL 1,000 UNIT TABLET PO SCH (08:37)
[2021-03-24] MEDS: AMIODARONE 200 MG TABLET PO SCH (08:37)
[2021-03-24] MEDS: POLYETHYLENE GLYCOL POWDER 17 GM PACK PO SCH (08:37)
[2021-03-24] MEDS: CHLORHEXIDINE 0.12% ORAL RINSE 60 ML BOTTLE SWISH/SPIT SCH ×2 (08:37→21:30)
[2021-03-24] MEDS ORDERED: oxyCODONE/ACETAMINOPHEN 5-325 MG TABLET PO PRN (09:05)
[2021-03-24] MEDS: INSULIN REGULAR 100 UNIT/ML SUBCUT SCH ×2 (09:09→13:16)
[2021-03-24] MEDS: CLORAZEPATE 3.75 MG TABLET PO PRN (09:15)
[2021-03-24] MEDS: ONDANSETRON 4 MG/2 ML VIAL IV PRN (17:58)
[2021-03-25 05:23] LABS: Basophils % 0.1 % (0.0-0.8); Eosinophils # 0.3 10*3/uL (0.0-0.87); Eosinophils % 2.9 % (0.00-10.9); Hematocrit 31.4 VOL% (42.0-52.0); Hemoglobin 10.4 GM/DL (14.0-18.0); Immature Granulocytes % 0.5 %; Immature Granulocytes Absolute 0.06 #; Lymphocytes # 1.4 10*3/uL (1.4-4.0); Lymphocytes % 12.8 % (21.2-54.2); Mean Corpuscular HGB Conc 33.1 GM/DL (32-36); Mean Platelet Volume 9.8 FL (9.6-12.0); Monocytes % 11.7 % (1.7-12.7); Platelet Count 286 T/CUMM (130-400); Red Blood Count 3.34 MC/CUMM (3.8-5.5); Red Cell Distribution Width 13.3 % (9.3-17.3); White Blood Count 11.1 T/CUMM (4-12)
[2021-03-25 05:49] LABS: Alanine Aminotransferase 24 U/L (16-61); Albumin 2.6 G/DL (3.4-5.0); Alkaline Phosphatase 48 U/L (45-117); Aspartate Amino Transferase 13 U/L (0-37); Bilirubin,Indirect 0.7 MG/DL (0.0-1.0); Blood Urea Nitrogen 28 MG/DL (7-18); Calcium 8.4 MG/DL (8.5-10.1); Carbon Dioxide 27 MMOL/L (21-32); Estimated Glom Filtration Rate 84 ML/MIN; Glucose 104 MG/DL (74-106); Osmolality,Calculated 282.5 MOS/KG (273-304); Sodium 139 MMOL/L (136-145); Total Protein 5.7 G/DL (6.4-8.2)
[2021-03-25] MEDS: ZINC GLUCONATE 50 MG TABLET PO SCH (08:34)
[2021-03-25] MEDS: ASPIRIN EC 325 MG TABLET PO SCH (08:34)
[2021-03-25] MEDS: DOCUSATE SODIUM 100 MG CAPSULE PO SCH (08:34)
[2021-03-25] MEDS: AMIODARONE 200 MG TABLET PO SCH (08:34)
[2021-03-25] MEDS: CYANOCOBALAMIN 500 MCG TABLET PO SCH (08:35)
[2021-03-25] MEDS: carvediloL 3.125 MG TABLET PO SCH ×2 (08:35→20:44)
[2021-03-25] MEDS: FERROUS SULFATE 325 MG TABLET PO SCH (08:35)
[2021-03-25] MEDS: CHOLECALCIFEROL 1,000 UNIT TABLET PO SCH (08:35)
[2021-03-25] MEDS: ASCORBIC ACID 500 MG TABLET PO SCH (08:35)
[2021-03-25] MEDS: PANTOPRAZOLE 40 MG TABLET PO SCH (08:35)
[2021-03-25] MEDS: CHLORHEXIDINE 0.12% ORAL RINSE 60 ML BOTTLE SWISH/SPIT SCH ×2 (08:36→20:44)
[2021-03-25] MEDS: POLYETHYLENE GLYCOL POWDER 17 GM PACK PO SCH (08:36)
[2021-03-25] MEDS: oxyCODONE/ACETAMINOPHEN 5-325 MG TABLET PO PRN (11:18)
[2021-03-25] MEDS: ONDANSETRON 4 MG/2 ML VIAL IV PRN (11:19)
[2021-03-25] MEDS: CLORAZEPATE 3.75 MG TABLET PO PRN (12:28)
[2021-03-26 04:36] LABS: Basophils % 0.1 % (0.0-0.8); Eosinophils # 0.3 10*3/uL (0.0-0.87); Eosinophils % 3.2 % (0.00-10.9); Hematocrit 29.1 VOL% (42.0-52.0); Hemoglobin 9.7 GM/DL (14.0-18.0); Immature Granulocytes % 0.5 %; Immature Granulocytes Absolute 0.05 #; Lymphocytes # 1.4 10*3/uL (1.4-4.0); Lymphocytes % 14.6 % (21.2-54.2); Mean Corpuscular HGB Conc 33.3 GM/DL (32-36); Mean Platelet Volume 9.5 FL (9.6-12.0); Monocytes % 11.2 % (1.7-12.7); Neutrophils % 70.4 % (38.7-73.9); Platelet Count 309 T/CUMM (130-400); Red Blood Count 3.13 MC/CUMM (3.8-5.5); Red Cell Distribution Width 13.4 % (9.3-17.3); White Blood Count 9.4 T/CUMM (4-12)
[2021-03-26 05:04] LABS: Alanine Aminotransferase 18 U/L (16-61); Albumin 2.4 G/DL (3.4-5.0); Alkaline Phosphatase 49 U/L (45-117); Aspartate Amino Transferase 15 U/L (0-37); Bilirubin,Indirect 0.3 MG/DL (0.0-1.0); Blood Urea Nitrogen 25 MG/DL (7-18); Calcium 8.5 MG/DL (8.5-10.1); Carbon Dioxide 29 MMOL/L (21-32); Estimated Glom Filtration Rate 75 ML/MIN; Glucose 94 MG/DL (74-106); Osmolality,Calculated 278.7 MOS/KG (273-304); Sodium 138 MMOL/L (136-145); Total Protein 5.6 G/DL (6.4-8.2)
[2021-03-26] MEDS: LACTULOSE 20 GM/30 ML UDCUP PO PRN (10:18)
[2021-03-26] MEDS: CHLORHEXIDINE 0.12% ORAL RINSE 60 ML BOTTLE SWISH/SPIT SCH ×2 (10:19→22:45)
[2021-03-26] MEDS: CYANOCOBALAMIN 500 MCG TABLET PO SCH (10:19)
[2021-03-26] MEDS: ASPIRIN EC 325 MG TABLET PO SCH (10:19)
[2021-03-26] MEDS: ZINC GLUCONATE 50 MG TABLET PO SCH (10:19)
[2021-03-26] MEDS: POLYETHYLENE GLYCOL POWDER 17 GM PACK PO SCH (10:19)
[2021-03-26] MEDS: carvediloL 3.125 MG TABLET PO SCH ×2 (10:20→21:02)
[2021-03-26] MEDS: CHOLECALCIFEROL 1,000 UNIT TABLET PO SCH (10:20)
[2021-03-26] MEDS: AMIODARONE 200 MG TABLET PO SCH (10:20)
[2021-03-26] MEDS: ASCORBIC ACID 500 MG TABLET PO SCH (10:20)
[2021-03-26] MEDS: FERROUS SULFATE 325 MG TABLET PO SCH (10:20)
[2021-03-26] MEDS: DOCUSATE SODIUM 100 MG CAPSULE PO SCH (10:20)
[2021-03-26] MEDS: PANTOPRAZOLE 40 MG TABLET PO SCH (10:21)
[2021-03-26] MEDS: CLORAZEPATE 3.75 MG TABLET PO PRN (10:25)
[2021-03-27] MEDS ORDERED: BISACODYL 5 MG TABLET PO ONE (08:20)
[2021-03-27 08:27] VITALS: BP 131/44
[2021-03-27] MEDS: POLYETHYLENE GLYCOL POWDER 17 GM PACK PO SCH (08:59)
[2021-03-27] MEDS: ASCORBIC ACID 500 MG TABLET PO SCH (09:00)
[2021-03-27] MEDS: ZINC GLUCONATE 50 MG TABLET PO SCH (09:00)
[2021-03-27] MEDS: CHOLECALCIFEROL 1,000 UNIT TABLET PO SCH (09:00)
[2021-03-27] MEDS: CYANOCOBALAMIN 500 MCG TABLET PO SCH (09:00)
[2021-03-27] MEDS: DOCUSATE SODIUM 100 MG CAPSULE PO SCH (09:00)
[2021-03-27] MEDS: carvediloL 3.125 MG TABLET PO SCH (09:00)
[2021-03-27] MEDS: PANTOPRAZOLE 40 MG TABLET PO SCH (09:00)
[2021-03-27] MEDS: CHLORHEXIDINE 0.12% ORAL RINSE 60 ML BOTTLE SWISH/SPIT SCH (09:00)
[2021-03-27] MEDS: FERROUS SULFATE 325 MG TABLET PO SCH (09:00)
[2021-03-27] MEDS: ASPIRIN EC 325 MG TABLET PO SCH (09:00)
== END 2021-03-27 11:54 | disposition home health service (06) | DRG 236 ==
LOC: N.5E 14:35 → N.CVR 03-19 11:48 → N.ICU 03-20 14:53 → N.TELES 03-21 16:20